=== PATIENT | male | born 1955 ===

== ENCOUNTER → 2021-04-23 14:05 | Outpatient (BNVA) | payer MEDICARE, MEDICAID, SELFPAY | PROVIDERS: Visit Provider Surgery | DX: R19.09 Other intra-abdominal and pelvic swelling, mass and lump (principal) | CPT/HCPCS: 87635 ==

== ENCOUNTER 2021-04-30 05:35 | Day surgery (SDC) | payer MEDICARE, MEDICAID, SELFPAY ==
[2021-04-29 09:30] VITALS: BMI 25.8
[2021-04-30] VITALS (12 sets, daily range): BP systolic 118–162; BP diastolic 62–100; PULSE 53–63; RESP 10–18; TEMP 36.4–36.9; O2SAT 94–99
[2021-04-30] MEDS: sodium chloride 0.9% 1,000 ML 30 ML IV (06:30)
--- NOTE | 2021-04-30 06:52 | ANES.PREANE2 ---
Pre-Anesthetic Assessment Pre-Anesthetic Assessment: Height/Weight: Height 1.68 m Weight 72.575 kg Temp Pulse Resp BP Pulse Ox 98.4 F 63 18 162/100 94 04/30/21 05:58 04/30/21 05:58 04/30/21 05:58 04/30/21 05:58 04/30/21 05:58 Proposed Procedure: Operation Date: 04/30/21 07:00 Proposed Procedures p Inguinal Hernia Repair w/ Mesh 88525 R19.09(Right) - Ricardo Vincent [place] [address] R22.2(Not Applicable) - Ricardo Vincent MD Was Beta Nolan taken within 24 hours: N/A Was Clonidine taken within 24 hours: N/A Social: Social History: No alcohol and No tobacco Exam: Pre-Anes Outpt Exam: alert, oriented x 3, clear to auscultation bilaterally and regular rate & rhythm Airway: Submandibular: WNL Cervical ROM: WNL MP: 2 History/ROS: No significant complaints Pulmonary: Pulmonary: None reported CV/HEM: CV/HEM: Arrythmia : : None reported Hepatic: Hepatic: None reported GI: GI: None reported Metabolic: Metabolic: None reported Musc/skel: Musc/skel: None reported Neuropsych: Neuropsych: None reported Anesthetic Plan: ASA status: 2 Anesthesia: General Risk of > 500 ml blood loss (7ml/kg in children): Yes, adequate IV access and fluids planned PFSH Anesthesia PFSH: Surgical History History of colonoscopy 10 years ago History of nasal surgery History of vasectomy S/P bilateral inguinal hernia repair S/P TURP Social History Smoking and tobacco status: former smoker Data Anesthesia Cardiac Studies: No Data to Display
--- NOTE | 2021-04-30 06:57 | W.PM.OPSFHP ---
Same Day Surgery H&P Indication for Procedure/HPI DATE OF PROCEDURE: April 30, 2021 CHIEF COMPLAINT/INDICATIONFOR SURGICAL PROCEDURE: right inguinal hernia PREOP DIAGNOSIS: right inguinal hernia/mass right abdomen PLANNED PROCEDRUE: Operation Date: 04/30/21 07:00 Proposed Procedures p Inguinal Hernia Repair w/ Mesh 15031 R19.09(Right) - Ricardo Vincent MD [place] Mass [id number] R22.2(Not Applicable) - Ricardo Vincent MD Medications/Allergies* Home Medications Medication Instructions Recorded Confirmed Type No Known Home Medications 04/29/21 04/29/21 History Allergies/Adverse Reactions Allergy/AdvReac Type Severity Reaction Status Date / Time No Known Allergies Allergy Unverified 04/29/21 09:28 Pertinent History/Comorbid Conditions* Surgical History (Updated 03/27/21 @ 14:11 by Ricardo Vincent MD) History of colonoscopy 10 years ago History of nasal surgery History of vasectomy S/P bilateral inguinal hernia repair S/P TURP Social History Smoking and tobacco status: former smoker Pertinent Exam Findings alert, oriented x 3 and regular rate & rhythm Recommendations Surgery/Procedure today Coding Level of Care Code Acute Eyeglass Lens Grinder for Ramon Gonzalez
[2021-04-30] MEDS: lidocaine 1% INJ 20 mL INJECTION (07:30)
--- NOTE | 2021-04-30 08:03 | P.OP_ITS ---
Operative Report Date of procedure: April 30, 2021 Pre-op Diagnosis: 1. Recurrent right inguinal hernia 2. Subcutaneous mass right abdominal wall Post-op Diagnosis: 1. Recurrent right inguinal hernia, recurrence inferior to the previously placed robotic repair mesh 2. Lipoma right abdominal wall measuring 3 x 2 cm Procedure Done: 1. Open repair of recurrent indirect right inguinal hernia with plug and mesh 2. Excision of abdominal wall mass measuring 3 x 2 cm Specimens removed/disposition: Abdominal wall mass Surgeon: Ricardo Vincent Anesthesia: General Condition: stable Disposition: PACU Procedure: The patient was taken to the operating room and intubated under general anesthesia after IV antibiotic had been administered. The lower abdomen was prepped and draped in a sterile manner. A 5 cm incision was made over the right inguinal canal using 15 blade, the subcutaneous tissue, Liban's fascia divided using electrocautery until the external oblique aponeurosis was identified. Using a 15 blade, a small opening was made in the external oblique aponeurosis along the length of the fibers, this was grasped with hemostats and opened using Metzenbaum scissors medially to the external ring and laterally beyond the internal ring. The contents of inguinal canal were dissected free from the wall and a Rimma drain was placed around it. There was no direct hernia noted. The cremasteric muscles were divided until the sac could be dissected free from the spermatic cord and reduced into the preperitoneal space. The recurrence was inferior to the previously placed mesh from the robotic repair. A small plug was placed in the internal ring and sutured using 2-0 Prolene [id number] suture. A Proloop mesh was introduced and using 2-0 Prolene suture the medial edge of the mesh were sutured to the fascia overlying the pubic tubercle, and the suture was run to approximate the inferior edge of the mesh to the shelving edge of inguinal ligament to a point beyond the inte rnal ring. Interrupted 2-0 Prolene suture was used to approximate the superior edge of the mesh to the internal oblique muscles and the 2 limbs of the mesh was sutured lateral to the internal ring and approximated to the internal oblique muscle. The wound was copiously irrigated with saline, good hemostasis noted and the external oblique aponeurosis was closed with running 2-0 Vicryl suture, Liban's fascia approximated using running 3-0 Vicryl suture, and skin was closed using running subcuticular 4-0 Monocryl suture and Dermabond. 10 mL of 0.5% Marcaine was infiltrated around the incision. Using 15 blade a 3 cm incision was made over the palpable mass in the right lower abdomen, subcutaneous tissue was divided with electrocautery and the lipoma measuring 3 x 2 cm was dissected free from the surrounding subcutaneous tissue. Hemostasis was ensured with cautery. Wound was irrigated with saline and subcutaneous tissues were approximated using running 3-0 Vicryl suture and skin was closed using running subcuticular 4-0 Monocryl suture and Dermabond. The patient was extubated and transferred to recovery room stable condition
[2021-04-30] MEDS: fentaNYL 50 mcg/mL INJ 2mL IVP (08:38)
[2021-04-30] MEDS: HYDROcodone-acetaminophen 5-325 mg Tablet 1 TAB PO (09:24)
--- NOTE | 2021-04-30 10:03 | ANE.PACU2 ---
Inpatient post-anesthesia follow up: Airway intact: Yes Vital signs: Temperature 98.2 F Pulse Rate 61 Respiratory Rate 18 Blood Pressure 158/86 Pulse Oximetry 96 Oxygen Delivery Me thod Room Air Oxygen Flow Rate 6 Fraction of Inspir ed Oxygen Hydration adequate: Yes Nausea and vomiting: No Pain level: 4 Mental status: Baseline
== END 2021-04-30 09:56 | disposition home or self-care (01) ==
PROVIDERS: Visit Provider Surgery
PROC: (CPT 11403; principal; 2021-04-30 07:00)
PROC: (CPT 11403; 2021-04-30 07:00)
DX: K40.91 Unilateral inguinal hernia, without obstruction or gangrene, recurrent (principal); D17.1 Benign lipomatous neoplasm of skin and subcutaneous tissue of trunk; Z87.891 Personal history of nicotine dependence
CPT/HCPCS: 11403; 12032; 49520; 88307; J0330; J0690; J1100; J2250; J2370; J2405; J2704; J3010; J3490; J7030